=== PATIENT | female | born 1950 | race Hispanic/Latino ===

== ENCOUNTER 2016-09-18 11:00 | Outpatient (CLI) | payer MEDICARE | END 2016-09-18 11:01 | disposition home or self-care (01) | LOC: SLR 11:00 | PROVIDERS: ATTEND Family Medicine | DX: G47.33 Obstructive sleep apnea (adult) (pediatric) (principal) | CPT/HCPCS: 95810 ==

== ENCOUNTER 2019-05-20 08:30 | Outpatient (CLI) | payer MEDICARE ==
--- NOTE | 2019-05-20 09:52 | Mammography Report ---
DIGITAL DIAGNOSTIC MAMMOGRAM WITH CAD, 05/20/2019 INDICATION: Follow-up mammogram for left breast calcifications. TECHNIQUE: Digital bilateral mammographic imaging was performed. Magnification views were obtained. This examination was interpreted with the benefit of Computer-aided Detection analysis. COMPARISON: Bilateral mammogram 10/22/2018. Patient has older outside mammograms which are not availab le at the time of this dictation. FINDINGS: Breast Density: There are scattered areas of fibroglandular density. There is no evidence of dominant mass, suspicious calcifications or architectural distortion in the r ight breast. There continues to be grouped microcalcifications in the upper outer quadrant of the lef t breast spanning a distance of 2.3 cm. Calcifications appear slightly increased in number and remain abnormal in appearance. Additionally, there is a focal asymmetry in the left lower outer quadrant which appears unchanged fro m the prior mammogram. IMPRESSION: Suspicious for malignancy. Grouped calcifications in the upper outer quadrant of the left breast appear slightly increased in appearance and further evaluation with biopsy is recommended. Ca lcifications would be amenable to stereotactic guided biopsy, if clinically desired. Follow up recommendation: Left breast biopsy. BI-RADS Category 4: Suspicious for Malignancy. A "normal" or negative report should not discourage follow up or biopsy of a clinically significant f inding. A written summary of these findings will be mailed to the patient. The patient will be entered into a mammography reporting system which will generate a reminder letter for the patient's next appointmen t at the appropriate interval. According to the [employer], yearly mammograms are recommended starting at age 40 and continuing as long as a woman is in good health. Breast MRI is recommended for women with an mandie roximately 20-25% or greater lifetime risk of breast cancer, including women with a strong family his tory of breast or ovarian cancer and women who have been treated for Hodgkin's disease. Signer Name: Rosemarie Justin MD Signed: 05/20/2019 9:48 AM Workstation Name: [id number]
== END 2019-05-20 08:31 | disposition home or self-care (01) ==
LOC: SPVWC 08:30
PROVIDERS: ATTEND Surgery
DX: R92.0 Mammographic microcalcification found on diagnostic imaging of breast (principal); N64.89 Other specified disorders of breast
CPT/HCPCS: 77066; 77067

== ENCOUNTER 2019-05-21 08:44 | Outpatient (CLI) | payer MEDICARE ==
--- NOTE | 2019-05-21 11:42 | Mammography Report ---
STEREOTACTIC NEEDLE BIOPSY WITH CLIP PLACEMENT LEFT BREAST INDICATION: LEFT STEREOTATIC. Suspicious left upper outer calcifications. COMPARISON: 05/20/2019 and 10/22/2018 FINDINGS: Informed consent was obtained and a timeout was called. The patient was placed prone on the stereotac tic biopsy table. The skin was cleansed with betadine. Using stereotactic guidance, sterile technique and 1% lidocaine for skin anesthesia and 2% lidocaine with epinephrine for deep anesthesia, 8-gauge Mammotome vacuum-assisted biopsy was performed from a C C from above approach. Samples were obtained around the clock face and player services representative calcifications were identified on a specimen radiograph. A localizer clip was placed at the biopsy site and the prob e was removed. Hemostasis was achieved with pressure to the site. A sterile dressing and an Alli story ge wrap were applied. A post procedure mammogram demonstrated removal of at least some of the calcifications and concordant location of the biopsy clip. The patient tolerated the procedure well and there were no apparent com plications. She left the department in good condition with a cold pack applied to the biopsy site and she was given instructions for wound care and follow-up. IMPRESSION: 1. Successful and uncomplicated left stereotactic biopsy of calcifications. Signer Name: Duy Shrestha MD Signed: 05/21/2019 11:37 AM Workstation Name: [id number]
--- NOTE | 2019-05-21 12:45 | Mammography Report ---
DIGITAL DIAGNOSTIC MAMMOGRAM WITH CAD, 05/21/2019 INDICATION: Immediately status post stereotactic biopsy for calcifications. TECHNIQUE: Digital left mammographic imaging was performed. This examination was interpreted with the benefit of Computer-aided Detection analysis. COMPARISON: 05/20/2019 FINDINGS: Breast Density: There are scattered areas of fibroglandular density. A biopsy clip is now identified in the upper outer quadrant and at least some of the previously descr ibed calcifications have been removed. IMPRESSION: Successful stereotactic biopsy with concordant clip placement. Follow up recommendation: No recall. Post biopsy imaging. A "normal" or negative report should not discourage follow up or biopsy of a clinically significant f inding. A written summary of these findings will be mailed to the patient. The patient will be entered into a mammography reporting system which will generate a reminder letter for the patient's next appointmen t at the appropriate interval. According to the [employer], yearly mammograms are recommended starting at age 40 and continuing as long as a woman is in good health. Breast MRI is recommended for women with an mandie roximately 20-25% or greater lifetime risk of breast cancer, including women with a strong family his tory of breast or ovarian cancer and women who have been treated for Hodgkin's disease. Signer Name: Duy Shrestha MD Signed: 05/21/2019 12:41 PM Workstation Name: [id number]
== END 2019-05-21 08:45 | disposition home or self-care (01) ==
LOC: SPVWC 08:44
PROVIDERS: ATTEND Surgery
DX: R92.0 Mammographic microcalcification found on diagnostic imaging of breast (principal); N60.12 Diffuse cystic mastopathy of left breast; R92.8 Other abnormal and inconclusive findings on diagnostic imaging of breast
CPT/HCPCS: 19081; 77065; 88305; A4648

== ENCOUNTER 2019-11-11 08:13 | Outpatient (CLI) | payer MEDICARE ==
--- NOTE | 2019-11-11 09:13 | Mammography Report ---
DIGITAL DIAGNOSTIC MAMMOGRAM WITH CAD, 11/11/2019 INDICATION: The patient has a history of stereotactic guided left breast biopsy for calcifications. This is a 6 month follow-up evaluation. She reports no new breast symptoms. TECHNIQUE: Digital left mammographic imaging was performed. This examination was interpreted with the benefit of Computer-aided Detection analysis. COMPARISON: 10/22/2018, 05/20/2019 FINDINGS: Breast Density: There are scattered areas of fibroglandular density. There is no evidence of dominant mass, suspicious calcifications or architectural distortion in the l eft breast. Biopsy clip in the upper outer left breast is noted with partial removal of left breast c alcifications. No new or suspicious mammographic finding is identified. IMPRESSION: Follow up recommendation: Back to schedule. BI-RADS Category 2: Benign. A "normal" or negative report should not discourage follow up or biopsy of a clinically significant f inding. A written summary of these findings will be mailed to the patient. The patient will be entered into a mammography reporting system which will generate a reminder letter for the patient's next appointmen t at the appropriate interval. According to the [employer], yearly mammograms are recommended starting at age 40 and continuing as long as a woman is in good health. Breast MRI is recommended for women with an mandie roximately 20-25% or greater lifetime risk of breast cancer, including women with a strong family his tory of breast or ovarian cancer and women who have been treated for Hodgkin's disease. Signer Name: Giovana Beltre MD Signed: 11/11/2019 9:08 AM Workstation Name: [id number]
== END 2019-11-11 08:14 | disposition home or self-care (01) ==
LOC: SPVWC 08:13
PROVIDERS: ATTEND Surgery
DX: R92.2 Inconclusive mammogram (principal)

== ENCOUNTER 2020-05-24 10:25 | Outpatient (CLI) | payer MEDICARE ==
--- NOTE | 2020-05-24 12:15 | Mammography Report ---
DIGITAL SCREENING MAMMOGRAM WITH CAD, 05/24/2020 CLINICAL INFORMATION / INDICATION: Routine screening mammography. SCREENING MAMMO TECHNIQUE: Digital bilateral 2D mammography was obtained in the craniocaudal and mediolateral obliqu e projections. This examination was interpreted with the benefit of Computer-Aided Detection analysis . COMPARISON: Prior mammogram 05/20/2019 and 10/22/2018 FINDINGS: Breast Density: There are scattered areas of fibroglandular density. No dominant mass, suspicious calcifications, or architectural distortion in either breast. There is a biopsy clip at site of prior benign stereotactic biopsy in the upper outer quadrant of the left breast. Otherwise, there has been no significant change. IMPRESSION: No mammographic evidence of malignancy. Follow up recommendation: Routine yearly BI-RADS Category 2: Benign. A "normal" or negative report should not discourage follow up or biopsy of a clinically significant f inding. A written summary of these findings will be mailed to the patient. The patient will be entered into a mammography reporting system which will generate a reminder letter for the patient's next appointmen t at the appropriate interval. The [employer] recommends yearly mammograms starting at age 40 and continuing as l ashli as a woman is in good health. Breast MRI is recommended for women with an approximate 20-25% or greater lifetime risk of breast cancer, including women with a strong family history of breast or ova kyler cancer or who have been treated for Hodgkin's disease. Signer Name: Danay Vargas MD Signed: 05/24/2020 12:11 PM Workstation Name: [id number]
== END 2020-05-24 10:26 | disposition home or self-care (01) ==
LOC: SPVWC 10:25
PROVIDERS: ATTEND Surgery
DX: Z12.31 Encounter for screening mammogram for malignant neoplasm of breast (principal); N64.89 Other specified disorders of breast
CPT/HCPCS: 77067